=== PATIENT | female | born 1955 | race Caucasian/White ===

== ENCOUNTER 2020-11-09 07:37 | Day surgery (SDC) | payer MEDICARE ==
[~2020-11-09] VITALS: Ht 175.3 cm; Wt 76.4 kg
[~2020-11-09 07:37] MED LIST: DORZOPSO BOTHEYES; ERGO50000 PO; LATANOPROST2.5 M3 BOTHEYES; PARO30 PO; Prinivil10 MG PO
[2020-11-09] MEDS ORDERED: ATOR20 PO (08:10)
== END 2020-11-09 09:29 | disposition home or self-care (01) ==
LOC: ORSCSDS 07:37
PROVIDERS: Internal Medicine Gastroenterology
PROC: 0DBP8ZX Excision of Rectum, Via Natural or Artificial Opening Endoscopic, Diagnostic (ICD-10-PCS; principal; 2020-11-09 08:45)
DX: Z12.11 Encounter for screening for malignant neoplasm of colon (principal); K62.1 Rectal polyp; I10 Essential (primary) hypertension; Z87.891 Personal history of nicotine dependence; Z79.899 Other long term (current) drug therapy
CPT/HCPCS: 88305; J2405; J2704; J7120

== ENCOUNTER 2023-01-10 10:45 | Day surgery (SDC) | payer MEDICARE ==
[~2023-01-10] VITALS: Ht 175.3 cm; Wt 76.6 kg
[~2023-01-10 10:45] MED LIST changes: +ATOR20 PO
[2023-01-10] MEDS ORDERED: TIMO.25OPS BOTHEYES (11:08)
--- NOTE | 2023-01-10 11:09 | NUR ---
01/10/23 1109 Ana Hassan AT [address] AT 1110
[2023-01-10 12:18] VITALS: BP 125/70
--- NOTE | 2023-01-10 12:21 | NUR ---
01/10/23 1221 Denver Leon IV INTACT/WNL
== END 2023-01-10 12:31 | disposition home or self-care (01) ==
LOC: ORSCSDS 10:45
PROVIDERS: Ophthalmology
PROC: 08RK3JZ Replacement of Left Lens with Synthetic Substitute, Percutaneous Approach (ICD-10-PCS; principal; 2023-01-10 14:30)
PROC: 08933ZZ Drainage of Left Anterior Chamber, Percutaneous Approach (ICD-10-PCS; principal; 2023-01-10 14:30)
DX: H25.13 Age-related nuclear cataract, bilateral (principal); H40.1132 Primary open-angle glaucoma, bilateral, moderate stage; I10 Essential (primary) hypertension; E78.5 Hyperlipidemia, unspecified; Z87.891 Personal history of nicotine dependence; K21.9 Gastro-esophageal reflux disease without esophagitis; Z79.899 Other long term (current) drug therapy
CPT/HCPCS: J2250; J3010; J3301; J7040; V2632